=== PATIENT | female | born 1935 | race Caucasian/White ===

== ENCOUNTER 2021-01-16 09:28 | Outpatient (REF) | payer MEDICARE, SELFPAY ==
[2021-01-16 13:20] LABS: Estimated Average Glucose 128 mg/dL; Hemoglobin A1c % 6.1 %
[2021-01-16 13:25] LABS: Alanine Aminotransferase 19 U/L (0-31); Albumin Level 4.2 g/dL (3.5-5.0); Alkaline Phosphatase 86 U/L (39-117); Anion Gap 16 (12-20); Aspartate Amino Transferase 20 U/L (5-31); Bilirubin Total 0.6 mg/dL (0.0-1.0); Blood Urea Nitrogen 11 mg/dL (9-16); Calcium 9.2 mg/dL (8.4-10.2); Carbon Dioxide 21 mmol/L (22-29); Chloride 107 mmol/L (96-108); Cholesterol 257 mg/dL; Estimated Glomerular Filt Rate > 60; Glucose Fasting 155 mg/dL (60-99); HDL Cholesterol 40 mg/dL; LDL Cholesterol Calculated 187 mg/dl; Potassium 3.6 mmol/L (3.3-5.1); Sodium 140 mmol/L (135-145); Total Protein 7.7 g/dL (6.5-8.0); Triglycerides 153 mg/dL
[2021-01-16 16:58] LABS: Creatinine Urine 323.25 mg/dL; Microalbum/Creatinine Ratio Ur 21.3 ug/mg cr
== END 2021-01-16 09:29 | disposition home or self-care (01) ==
LOC: HO.MANLR 09:28
PROVIDERS: PCP Internal Medicine; Visit Provider Internal Medicine
DX: E11.9 Type 2 diabetes mellitus without complications (principal)
CPT/HCPCS: 36415; 80053; 80061; 82043; 83036

== ENCOUNTER 2021-04-16 08:34 | Outpatient (REF) | payer MEDICARE, SELFPAY ==
[2021-04-16 12:03] LABS: Cholesterol 242 mg/dL; HDL Cholesterol 39 mg/dL; LDL Cholesterol Calculated 173 mg/dl; Triglycerides 150 mg/dL
[2021-04-16 12:12] LABS: Estimated Average Glucose 123 mg/dL; Hemoglobin A1c % 5.9 %
== END 2021-04-16 08:35 | disposition home or self-care (01) ==
LOC: HO.MANLDS 08:34
PROVIDERS: PCP Internal Medicine; Visit Provider Internal Medicine
DX: E78.00 Pure hypercholesterolemia, unspecified (principal)
CPT/HCPCS: 36415; 80061; 83036

== ENCOUNTER 2021-07-18 10:28 | Outpatient (REF) | payer MEDICARE, SELFPAY ==
[2021-07-18 13:48] LABS: Alanine Aminotransferase 18 U/L (0-31); Alkaline Phosphatase 88 U/L (39-117); Anion Gap 12 (12-20); Aspartate Amino Transferase 22 U/L (5-31); Bilirubin Total 0.4 mg/dL (0.0-1.0); Blood Urea Nitrogen 11 mg/dL (9-16); Calcium 9.5 mg/dL (8.4-10.2); Carbon Dioxide 25 mmol/L (22-29); Chloride 107 mmol/L (96-108); Cholesterol 163 mg/dL; Estimated Glomerular Filt Rate 58; Glucose Fasting 185 mg/dL (60-99); HDL Cholesterol 41 mg/dL; LDL Cholesterol Calculated 99 mg/dl; Potassium 3.7 mmol/L (3.3-5.1); Sodium 140 mmol/L (135-145); Total Protein 7.4 g/dL (6.5-8.0); Triglycerides 119 mg/dL
[2021-07-18 13:50] LABS: Estimated Average Glucose 123 mg/dL; Hemoglobin A1C 149.1994 umol/L; Hemoglobin A1c % 5.9 %
== END 2021-07-18 10:29 | disposition home or self-care (01) ==
LOC: HO.MANLDS 10:28
PROVIDERS: PCP Internal Medicine; Visit Provider Internal Medicine
DX: E11.9 Type 2 diabetes mellitus without complications (principal)
CPT/HCPCS: 36415; 80053; 80061; 83036

== ENCOUNTER 2021-10-19 11:53 | Outpatient (REF) | payer MEDICARE, SELFPAY ==
[2021-10-19 13:38] LABS: Estimated Average Glucose 126 mg/dL
== END 2021-10-19 11:54 | disposition home or self-care (01) ==
LOC: HO.MANLDS 11:53
PROVIDERS: PCP Internal Medicine; Visit Provider Internal Medicine
DX: E11.9 Type 2 diabetes mellitus without complications (principal)
CPT/HCPCS: 36415; 83036

== ENCOUNTER 2022-01-30 08:49 | Outpatient (REF) | payer MEDICARE, SELFPAY ==
[2022-01-30 11:28] LABS: Estimated Average Glucose 120 mg/dL; Hemoglobin A1C 152.6912 umol/L; Hemoglobin A1c % 5.8 %
[2022-01-30 11:52] LABS: Alanine Aminotransferase 12 U/L (0-31); Albumin Level 3.9 g/dL (3.5-5.0); Alkaline Phosphatase 92 U/L (39-117); Anion Gap 10 (12-20); Aspartate Amino Transferase 15 U/L (5-31); Bilirubin Total 0.6 mg/dL (0.0-1.0); Blood Urea Nitrogen 10 mg/dL (9-16); Calcium 9.6 mg/dL (8.4-10.2); Carbon Dioxide 28 mmol/L (22-29); Chloride 109 mmol/L (96-108); Cholesterol 216 mg/dL; Estimated Glomerular Filt Rate > 60; Glucose Fasting 123 mg/dL (60-99); HDL Cholesterol 42 mg/dL; LDL Cholesterol Calculated 151 mg/dl; Potassium 3.7 mmol/L (3.3-5.1); Sodium 143 mmol/L (135-145); Total Protein 7.2 g/dL (6.5-8.0); Triglycerides 118 mg/dL
[2022-01-30 13:16] LABS: Creatinine Urine 229.71 mg/dL; Microalbum/Creatinine Ratio Ur 5.2 ug/mg cr
== END 2022-01-30 08:50 | disposition home or self-care (01) ==
LOC: HO.MANLDS 08:49
PROVIDERS: PCP Internal Medicine; Visit Provider Internal Medicine
DX: E11.9 Type 2 diabetes mellitus without complications (principal)
CPT/HCPCS: 36415; 80053; 80061; 82043; 83036

== ENCOUNTER 2022-05-31 11:32 | Outpatient (REF) | payer MEDICARE, SELFPAY ==
[2022-05-31 12:44] LABS: Estimated Average Glucose 111 mg/dL; Hemoglobin A1c % 5.5 %
== END 2022-05-31 11:33 | disposition home or self-care (01) ==
LOC: HO.MANLDS 11:32
PROVIDERS: Visit Provider Internal Medicine
DX: E11.9 Type 2 diabetes mellitus without complications (principal)
CPT/HCPCS: 36415; 83036

== ENCOUNTER 2022-10-08 09:26 | Outpatient (REF) | payer MEDICARE, SELFPAY ==
[2022-10-08 11:46] LABS: Alanine Aminotransferase 12 U/L (0-31); Albumin Level 4.1 g/dL (3.5-5.0); Alkaline Phosphatase 92 U/L (39-117); Anion Gap 18 (12-20); Aspartate Amino Transferase 18 U/L (5-31); Bilirubin Total 0.8 mg/dL (0.0-1.0); Blood Urea Nitrogen 10 mg/dL (9-16); Calcium 9.6 mg/dL (8.4-10.2); Carbon Dioxide 21 mmol/L (22-29); Chloride 108 mmol/L (96-108); Cholesterol 157 mg/dL; Estimated Glomerular Filt Rate 51; Glucose Random 161 mg/dL (60-115); HDL Cholesterol 42 mg/dL; LDL Cholesterol Calculated 90 mg/dl; Potassium 3.7 mmol/L (3.3-5.1); Sodium 143 mmol/L (135-145); Total Protein 7.5 g/dL (6.5-8.0); Triglycerides 127 mg/dL
== END 2022-10-08 09:27 | disposition home or self-care (01) ==
LOC: HO.MANLDS 09:26
PROVIDERS: Visit Provider Internal Medicine
DX: E11.9 Type 2 diabetes mellitus without complications (principal)
CPT/HCPCS: 36415; 80053; 80061

== ENCOUNTER 2022-10-14 11:43 | Outpatient (REF) | payer MEDICARE, SELFPAY ==
[2022-10-14 14:42] LABS: Estimated Average Glucose 117 mg/dL; Hemoglobin A1c % 5.7 %
== END 2022-10-14 11:44 | disposition home or self-care (01) ==
LOC: HO.MANLDS 11:43
PROVIDERS: Visit Provider Internal Medicine
DX: E11.9 Type 2 diabetes mellitus without complications (principal)
CPT/HCPCS: 36415; 83036

== ENCOUNTER 2023-01-14 11:18 | Outpatient (REF) | payer MEDICARE, SELFPAY ==
[2023-01-14 14:41] LABS: Estimated Average Glucose 111 mg/dL; Hemoglobin A1C 145.3785 umol/L; Hemoglobin A1c % 5.5 %
[2023-01-14 15:23] LABS: Alanine Aminotransferase 16 U/L (0-31); Alkaline Phosphatase 106 U/L (39-117); Anion Gap 14 (12-20); Aspartate Amino Transferase 26 U/L (5-31); Bilirubin Total 0.7 mg/dL (0.0-1.0); Blood Urea Nitrogen 13 mg/dL (9-16); Calcium 9.5 mg/dL (8.4-10.2); Carbon Dioxide 22 mmol/L (22-29); Chloride 108 mmol/L (96-108); Cholesterol 157 mg/dL; Estimated Glomerular Filt Rate 52; Glucose Random 249 mg/dL (60-115); HDL Cholesterol 42 mg/dL; LDL Cholesterol Calculated 85 mg/dl; Potassium 3.8 mmol/L (3.3-5.1); Sodium 140 mmol/L (135-145); Total Protein 7.3 g/dL (6.5-8.0); Triglycerides 154 mg/dL
== END 2023-01-14 11:19 | disposition home or self-care (01) ==
LOC: HO.MANLDS 11:18
PROVIDERS: Visit Provider Internal Medicine
DX: E11.9 Type 2 diabetes mellitus without complications (principal)
CPT/HCPCS: 36415; 80053; 80061; 83036

== ENCOUNTER 2023-05-12 14:42 | Outpatient (REF) | payer MEDICARE, SELFPAY ==
[2023-05-12 18:13] LABS: Estimated Average Glucose 111 mg/dL; Hemoglobin A1c % 5.5 %
== END 2023-05-12 14:43 | disposition home or self-care (01) ==
LOC: HO.MANLDS 14:42
PROVIDERS: Visit Provider Internal Medicine
DX: E11.9 Type 2 diabetes mellitus without complications (principal)
CPT/HCPCS: 36415; 83036

== ENCOUNTER 2023-11-21 11:18 | Outpatient (REF) | payer MEDICARE, SELFPAY ==
[2023-11-21 13:56] LABS: Estimated Average Glucose 114 mg/dL; Hemoglobin A1c % 5.6 % (<6.0)
== END 2023-11-21 11:19 | disposition home or self-care (01) ==
LOC: HO.MANLDS 11:18
PROVIDERS: Visit Provider Internal Medicine
DX: E11.9 Type 2 diabetes mellitus without complications (principal)
CPT/HCPCS: 36415; 83036

== ENCOUNTER 2024-02-20 13:51 | Outpatient (REF) | payer MEDICARE, OTHER, SELFPAY ==
[2024-02-20 18:16] LABS: Creatinine Urine 81.21 mg/dL
[2024-02-20 18:20] LABS: Alanine Aminotransferase 16 U/L (0-31); Alkaline Phosphatase 96 U/L (39-117); Anion Gap 14 (12-20); Aspartate Amino Transferase 20 U/L (5-31); Bilirubin Total 0.5 mg/dL (0.0-1.0); Blood Urea Nitrogen 13 mg/dL (9-16); Calcium 10.3 mg/dL (8.4-10.2); Carbon Dioxide 24 mmol/L (22-29); Chloride 105 mmol/L (96-108); Estimated Glomerular Filt Rate 56; Glucose Random 124 mg/dL (60-115); Potassium 3.9 mmol/L (3.3-5.1); Sodium 139 mmol/L (135-145); Total Protein 8.1 g/dL (6.5-8.0)
[2024-02-20 18:22] LABS: Estimated Average Glucose 120 mg/dL; Hemoglobin A1c % 5.8 % (<6.0)
== END 2024-02-20 13:52 | disposition home or self-care (01) ==
LOC: HO.MANLDS 13:51
PROVIDERS: Visit Provider Internal Medicine
DX: I10 Essential (primary) hypertension (principal); E11.9 Type 2 diabetes mellitus without complications
CPT/HCPCS: 36415; 80053; 82043; 82570; 83036

== ENCOUNTER 2024-08-23 11:33 | Outpatient (REF) | payer MEDICARE, OTHER, SELFPAY ==
[2024-08-23 13:56] LABS: Estimated Average Glucose 123 mg/dL; Hemoglobin A1c % 5.9 % (<6.0)
[2024-08-23 14:20] LABS: Alanine Aminotransferase 15 U/L (0-31); Albumin Level 3.9 g/dL (3.5-5.0); Alkaline Phosphatase 84 U/L (39-117); Anion Gap 13 (12-20); Aspartate Amino Transferase 17 U/L (5-31); Bilirubin Total 0.5 mg/dL (0.0-1.0); Blood Urea Nitrogen 14 mg/dL (9-16); Calcium 9.9 mg/dL (8.4-10.2); Carbon Dioxide 24 mmol/L (22-29); Chloride 107 mmol/L (96-108); Estimated Glomerular Filt Rate 60; Glucose Random 184 mg/dL (60-115); Potassium 3.6 mmol/L (3.3-5.1); Sodium 140 mmol/L (135-145); Total Protein 7.6 g/dL (6.5-8.0)
== END 2024-08-23 11:34 | disposition home or self-care (01) ==
LOC: HO.MANLDS 11:33
PROVIDERS: Visit Provider Internal Medicine
DX: I10 Essential (primary) hypertension (principal); E11.9 Type 2 diabetes mellitus without complications
CPT/HCPCS: 36415; 80053; 83036

== ENCOUNTER 2025-02-07 13:17 | Outpatient (REF) | payer MEDICARE, OTHER, SELFPAY ==
--- OUTSIDE RECORDS SUMMARY | 2025-02-07 15:00 | XMS_ITS | Continuity of Care Document ---
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 MUST MEET 2 OUT OF 3 ELEMENTS: PROBLEMS, DATA OR RISK ELEMENT 1: PROBLEMS 1 OR MORE CHRONIC ILLNESS W/SEVERE EXACERBATION, PROGRESSION MAY REQUIRE HOSPITAL LEVEL CARE OR 1 ACUTE OR CHRONIC ILLNESS OR INJURY THAT POSES A THREAT TO LIFE OR BODILY FUNCTION ELEMENT 2: DATA: MUST MEET 2 OF 3 CATEGORIES CATEGORY 1 REVIEW OF PRIOR EXTERNAL NOTES REVIEW OF THE RESULTS ORDERING OF EACH TEST ASSESSMENT REQUIRING INDEPENDENT HISTORIAN(S) CATEGORY 2: INDEPENDENT INTERPRETATION OF TESTS BY ANOTHER PROVIDER/SPECIALI ST CATEGORY 3: DISCUSSION OF MGT OR TEST INTERPRETATION W/EXTERNAL PHYSICIAN/SPECIAL IST ELEMENT 3: RISK HIGH RISK OF MORBIDITY FROM ADDITIONAL DIAGNOSTIC TESTING OR TREATMENT PROVIDER MUST THOROUGHLY DOCUMENT EACH ELEMENT THAT IS COVERED has stopped driving and is doing ok except for her eye The patient presented to their appointment today for multiple concerns requiring moderate to high-level decision making and took over 40-45 minutes for an adequate and appropriate history, exam, assessment and treatment plan. This appointment was done with an established patient. Not available 02/07/2025 14:10:17 Plan of Treatment Reminders Order Date Submit Date Provider Last Modified By Organization Details Last Modified Time Details Appointments FOLLOW UP 2024 01:45P M DR KIM Not available Not available Not available FOLLOW UP 2024 01:30P M DR KIM Not available Not available Not available Lab None recorded . Referral None recorded . Procedures None recorded . Surgeries None recorded . Imaging None recorded . Medication Orders None recorded . Patient TargetsNo targets recorded. Patient Instructions Encounter Date Encounter Id Patient Instructions Last Modified By Organization Details Last Modified Time 02/07/2025 [id number] atrial fibrillation: care instructions Not available 02/07/2025 14:09:13 Reason for Referral None Reported. Problems Name Problem SNOMED Code Status Onset Date Resolution Date Notes Provider Name and Address Organization Details Recorded Time Urinary incontine nce 186603107 Active 2017 Not Available [facility] 13:19:52 Trigger finger Active 2017 Not Available [facility] 13:19:52 Degenerat jodie joint disease of hand 19113046 Active 2017 Not Available [facility] 13:19:52 Essential hypertens ion 08116504 Active 2017 Tina wu [facility] 5 09:49:37 Osteoarth ritis 121473580 Active 2017 spine Tina wu [facility] 5 09:49:37 Hyperchol esterolem ia 75257634 Active 2017 Tina wu [facility] 5 09:49:37 Atrial fibrillat ion 12167977 Active 2017 Tinamaria del carmen wu 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 5 09:49:37 Coronary arteriosc lerosis 88816903 Active 2017 2 stents 2005 Micah Kim, DO [address] [place], [address], [facility] 2 11:27:41 Venous varices 249821901 Active 2017 Tina wu [facility] 5 09:49:37 Edema of lower extremity 163138317 Active 2017 Tina wu [facility] 5 09:49:37 Benign paroxysma l positiona l vertigo 717078094 Active 2017 Tina wu [facility] 5 09:49:37 Trochante lincoln bursitis of left hip 03211873384 9103 [facility] 09:49:37 Bilateral degenerat ion of macula 90702386753 134895 Active 2017 [facility] 5 09:49:37 Superfici al thromboph lebitis 8398889 Active 2021 Tina wu 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 Procedures Surgical History Date Name Laterality Status Provider Name and Address Organization Details Recorded Time 020 I&D completed Micah Kim DO [address] [place] [address], [phone], [facility] 05/16/2020 15:09:01 018 Corticosteroid Injection completed Micah Kim DO [address] [place] [address], [phone], [facility] 09/21/2018 14:24:58 Imaging Results None recorded. Procedure Notes None recorded. Medical Equipment None Reported. Allergies Allergen ID Allergen Name Allergen Category Reaction Reaction Severity Criticality Documentation Date Start Date Code Code System Note Provider Name and Address Organization Details Recorded Time 3735 Product containin g 3-hydroxy -3-methyl glutaryl- coenzyme A reductase inhibitor (product) medicatio n myalgias (muscle pain) Not available Not available 01/21/2020 93135 009 SNOMED Micah Kim, DO [address] [place], [address], [facility] 0 10:36:39 393 glipizide medicatio n Not available Not available Not available 02/04/2018 4821 RxNorm [facility] 8 11:32:08 394 Avandia medicatio n Not available Not available Not available 02/04/2018 85257 5 RxNorm Shruthi Chavez [facility] 8 11:32:15 396 bee pollen environme nt,medica tion Not available Not available Not available 02/04/2018 63887 7 [facility] 8 11:32:32 8631 metoprolo l Not available myalgias (muscle pain) severe high 11/26/2024 6918 RxNorm Micah Kim, DO [address] [place], [address], [facility] 4 14:35:44 Medications Name Sig Start Date Stop Date Status Note LastModified by Organization Details LastModified Time Prescriptio n - Prior Authorizati on Request 02/01 completed Not Available Not Available Not Available furosemide 40 mg tablet TAKE 1 TABLET BY MOUTH ONCE DAILY 05/25 completed Not Available Not Available Not Available oxybutynin chloride ER 10 mg tablet,exte nded release 24 hr Take 1 tablet every day by oral route for 30 days. 05/25 completed Not Available Not Available Not Available diltiazem CD 180 mg capsule,ext ended release 24 hr TAKE 1 CAPSULE BY MOUTH EVERY DAY active Not Available Not Available No t Available lisinopril 20 mg tablet TAKE 1 TABLET BY MOUTH EVERY DAY active Not Available Not Available No t Available metoprolol succinate ER 100 mg tablet,exte nded release 24 hr TAKE 1 TABLET BY MOUTH EVERY DAY FOR 30 DAYS 02/07 completed Not Available Not Available Not Available potassium chloride ER 10 mEq tablet,exte nded release TAKE 1 TABLET BY MOUTH ONCE DAILY 05/25 completed Not Available Not Available Not Available OneTouch Ultra Test strips USE DIRECTED TO TEST BLOOD SUGARS DAILY active Not Available Not Available No t Available metformin 1,000 mg tablet TAKE 1 TABLET BY MOUTH ONCE DAILY 08/25 completed Not Available Not Available Not Available oxycodone 5 mg tablet Use one tablet as needed. 02/01 completed Not Available Not Available Not Available rosuvastati n 5 mg tablet TAKE 1 TABLET BY MOUTH EVERY DAY active Not Available Not Available No t Available rosuvastati n 40 mg tablet TAKE 1 TABLET BY MOUTH ONCE DAILY 05/25 completed Not Available Not Available Not Available metoprolol tartrate 25 mg tablet TAKE 1 TABLET BY MOUTH TWICE A DAY 08/30 completed Not Available Not Available Not Available OneTouch UltraSoft Lancets USE DIRECTED DAILY TO CHECK BLOOD SUGARS active Not Available Not Available No t Available Aspir-81 Take one tablet daily. active Not Available Not Available No t Available Januvia 100 mg tablet TAKE 1 TABLET BY MOUTH ONCE DAILY 04/23 completed Not Available Not Available Not Available diclofenac 1 % topical gel APPY 2 G TO THE AFFECTED AREA TOPICAL ROUTE 4 TIMER PER DAY 2021 active Not Available Not Available Not Avai lable Ozempic 1 mg/dose (2 mg/1.5 mL) subcutaneou s pen injector Inject 1.5 mL every week by subcutane ous route for 30 days. 01/24 completed Not Available Not Available Not Available Ozempic 0.25 mg or 0.5 mg (2 mg/1.5 mL) subcutaneou s pen injector INJECT 0.5MG UNDER THE SKIN ONCE A WEEK 05/23 completed Not Available Not Available Not Available OneTouch Ultra2 Meter USE DIRECTED 06/10 completed Not Available Not Available Not Available Ozempic 0.25 mg or 0.5 mg (2 mg/3 mL) subcutaneou s pen injector INJECT 0.5 MG UNDER THE SKIN ONCE WEEKLY active Not Available Not Available No t Available Vitals Date Recorded Body height Body mass index (BMI) Body weight Heart rate Oxygen saturation Oxygen saturation in Arterial blood by Pulse oximetry Systolic blood pressure Diastolic blood pressure Provider Name and Address Organization Details Last Updated DateTime 5 160.66 cm 32.7 kg/m2 54866.1 8 g 90 /min 95 % 95 % 148 mm[Hg] 88 mm[Hg] Tina Camargo [facility] 5 13:48:02 Social History Question Answer Notes LastModified by Organizat ion Details LastModified Time Tobacco Smoking Status Former Smoker Not Available [facility] 10/03/2020 03:36:24 What Was The Date Of Your Most Recent Tobacco Screening? 02/07/2025 [email or web address] Information not available 02/07/2025 Do You Or Have You Ever Used Any Other Forms Of Tobacco Or Nicotine? No Information not available 06/10/2022 Sex: Unknown Functional Status None recorded. Mental Status None recorded. Family History Nothing Reported. Medical History No medical history recorded. Gynecological HistoryNo gynecological history recorded. Obstetrics History GPAL:G 0 P 0 0 0 0 Immunizations Vaccine Type Date Status Note Provider Nam e and Address Organization Details Recorded Time Influenza, split virus, quadrivalent, preservative 9 completed Not Available [facility] 06/29/2022 23:19:00 Influenza, split virus, quadrivalent, preservative 8 completed Not Available [facility] 12/18/2019 02:46:31 pneumococcal polysaccharide PPV23 0 completed Not Available [facility] 06/29/2022 23:19:00 Influenza, split virus, quadrivalent, preservative 0 completed Not Available [facility] 06/29/2022 23:19:00 COVID-19, mRNA, LNP-S, PF, 30 mcg/0.3 mL dose 1 completed Not Available [facility] 06/29/2022 23:19:00 COVID-19, mRNA, LNP-S, PF, 30 mcg/0.3 mL dose 1 completed Not Available [facility] 06/29/2022 23:19:00 Past Encounters Encounter ID Performer Location Encounter Start Date Encounter Closed Date Diagnosis/Indication Diagnosis SNOMED-CT Code Diagnosis ICD10 Code Diagnosis Note [id number] DO [facility] [address] [address] 02/07/2025 13:30:34 02/07/2025 14:28:42 Depression screening 282705899 Z13.31 doing ok no issues Essential hypertension 30584421 I10 had to stop the metoprolol now on diltiazem 180mg Hypercholesterolemia 136 15563 E78.00 LDL is unknown as lab slip misprinted the rosuvastat in is doing well overall Edema of l ower extremity 701953772 R60.0 stable overall no swelling at all and is doing great now that she is walking and she is encouraged to cont this Type 2 frances betes mellitus without complication 695531599 E11.9 a1c is pending5.8 perfect in sept recent a1c is pending Degenerati on of lumbar intervertebral disc 92867093 M51.360 low back is a prob Coronary arteriosclerosis 54572637 I25.10 here for rechk is asymptomat ic Atrial fibrillation 4943 6004 I48.91 diltiazem working well Health Concerns Section Related Observation LastModified by Organization Detai ls LastModified Time None Recorded Concern Status LastModified by Organization Details LastModified Time None Recorded Payers Encounter Date Sequence Insurance Name Policy Number Policy Bermudez Covered Member ID Bermudez Member ID Guarantor Name 02/07/2025 1 [place]ICARE [place] Tabitha Bolivar [id number] Tabitha Bolivar 02/07/2025 2 [facility] Tabitha Bolivar [id number] Tabitha Bolivar Notes Date Note Type Note Provider Name a nd Address Organization Details Recorded Time 5 text/html priorstates had severe pain in her entire body relates she couldnt move or walk had to stay in her lift chairrelates after several dyas of this she has been able to get up againstates that she has some discomfort down back of neck and shoulders and the pain is pretty much gone now but having residual stiffnessrelates that she had her sx start after going to 100mg metoprolol this was stopped and the diltiazem is now in its place and is tolerated Micah Kim, DO [address], [place], [address], [facility] 02/07/2025 14:13:31 OBGyn Episode No OBEpisode recorded.
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
[2025-02-07 18:00] LABS: Estimated Average Glucose 131 mg/dL; Hemoglobin A1c % 6.2 % (<6.0)
[2025-02-07 18:22] LABS: Alanine Aminotransferase 21 U/L (0-31); Alkaline Phosphatase 92 U/L (39-117); Anion Gap 13 (12-20); Aspartate Amino Transferase 25 U/L (5-31); Bilirubin Total 0.3 mg/dL (0.0-1.0); Blood Urea Nitrogen 20 mg/dL (9-16); Calcium 10.2 mg/dL (8.4-10.2); Carbon Dioxide 21 mmol/L (22-29); Chloride 110 mmol/L (96-108); Estimated Glomerular Filt Rate 51; Glucose Random 133 mg/dL (60-115); Magnesium 1.8 mg/dL (1.6-2.6); Potassium 3.9 mmol/L (3.3-5.1); Sodium 140 mmol/L (135-145); Total Protein 8.5 g/dL (6.5-8.0)
[2025-02-07 18:37] LABS: Erythrocyte Sedimentation Rate 44 MM/HR (0-20)
== END 2025-02-07 13:18 | disposition home or self-care (01) ==
LOC: HO.MANLDS 13:17
PROVIDERS: Visit Provider Internal Medicine
DX: E11.9 Type 2 diabetes mellitus without complications (principal); M79.10 Myalgia, unspecified site
CPT/HCPCS: 36415; 80053; 82550; 83036; 83735; 85652

== ENCOUNTER 2025-05-18 13:42 | Outpatient (REF) | payer MEDICARE, OTHER, SELFPAY ==
[2025-05-19 07:19] LABS: Estimated Average Glucose 137 mg/dL; Hemoglobin A1C 161.5653 umol/L; Hemoglobin A1c % 6.4 % (<6.0)
== END 2025-05-18 13:43 | disposition home or self-care (01) ==
LOC: HO.MANLDS 13:42
PROVIDERS: Visit Provider Internal Medicine
DX: E11.9 Type 2 diabetes mellitus without complications (principal)
CPT/HCPCS: 36415; 83036

== ENCOUNTER 2025-09-05 14:03 | Outpatient (REF) | payer MEDICARE, OTHER, SELFPAY ==
--- OUTSIDE RECORDS SUMMARY | 2025-09-05 16:37 | XMS_ITS | Encounter Summary ---
Author Organization [facility] Address [address] [place] [address] [address] [place] [address] Phone Care Team Providers Care Sales And Training Specialist Name Role Phone Micah Vences DO Primary Care Provider [phone] Micah Vences DO Unavailable Encounter Details Date Type Department Care Team ([facility] st Contact Info) Description 10/26/2018 Ancillary Orders Virtual Department [address] [place] [address] Micah Vences DO [address] [place] [address] [email or web address] Screening for osteoporosis Social History Tobacco Use Types Packs/Day Years Used Date Smoking Tobacco: Never Assessed Comments Unknown Sex and Gender Information Value Date Recorded Sex Assigned at Not on file Legal Sex Female 10:14 PM EDT Gender Identity Not on file Sexual Orientation Not on file documented as of this encounter Plan of Treatment Not on file documented as of this encounter Visit Diagnoses Diagnosis Screening for osteoporosis Special screening for osteoporosis documented in this encounter Additional Health Concerns Infection Onset Date Last Indicated Resolved Time MRSA Comment:Import to add expiration date of 02/16/2022 per Infection Control as part of historical infection status reconciliation 08/17/2010 08/17/2010 02/17/20 22 1:36 AM EDT documented as of this encounter Care Teams Sales And Training Specialist Relationship Specialty Start Date End Date Micah Vences DO [email or web address] PCP - General 09/18/17 Micah Vences DO [address] [place] [address] [email or web address] Insurance Assigned Provider 08/10/2210/01 documented as of this encounter Additional Source Comments The information contained in this document represents components of the legal health record. It is not the complete legal health record.[facility]
--- OUTSIDE RECORDS SUMMARY | 2025-09-05 16:37 | XMS_ITS | Encounter Summary ---
Author Organization [facility] Address [address] [place] [address] [address] [place] [address] Phone Care Team Providers Care Salvage Engineer Name Role Phone Micah Vences DO Primary Care Provider [phone] Micah Vences DO Unavailable Encounter Details Date Type Department Care Team ([facility] st Contact Info) Description 02/01/2019 Ancillary Orders Virtual Department [address] [place] [address] Micah Vences DO [address] [facility] [place] [address] [email or web address] Screening for osteoporosis; Osteopenia, unspecified location Social History Tobacco Use Types Packs/Day Years [...] Screening for osteoporosis Special screening for osteoporosis Osteopenia, unspecified location documented in this encounter Additional Health Concerns Infection Onset Date Last Indicated Resolved Time MRSA Comment:Import to add expiration date of 02/16/2022 per Infection Control as part of historical infection status reconciliation 08/17/2010 08/17/2010 02/17/20 22 1:36 AM EDT documented as of this encounter Care Teams Salvage Engineer Relationship Specialty Start Date End Date Micah Vences DO [email or web address] PCP - General 09/18/17 Micah Vences DO [address] [place] [address] [email or web address] Insurance Assigned Provider 08/10/2210/01 documented as of this encounter Additional Source Comments The information contained in this document represents components of the legal health record. It is not the complete legal health record.[facility]
--- OUTSIDE RECORDS SUMMARY | 2025-09-05 16:37 | XMS_ITS | Clinical Summary ---
Author Organization [facility] Address [address] [place] [id number] Phone Care Team Providers Care Heat Treat Operator Name Role Phone Micah Vences DO Primary Care Provider [phone] Allergies Active Allergy Reactions Criticality Noted Date Comments Rosiglitazone 06/29/2022 Glipizide 06/29/2022 Medications potassium chloride (KLOR-CON) 10 MEQ ER tablet Take 1 tablet by mouth daily. Active rosuvastatin (CRESTOR) 40 MG tablet Take 1 tablet by mouth daily. Active furosemide (LASIX) 40 MG tablet TAKE 1 TABLET (40 MG) BY MOUTH ONCE DAILY Active alendronate (FOSAMAX) 70 MG tablet Take 1 tablet by mouth once a week. Active lancets Misc USE TWICE DAILY Active simvastatin (ZOCOR) 40 MG tablet Take 1 tablet by mouth daily. Active metFORMIN (GLUCOPHAGE) 1000 MG tablet Take 1 tablet by mouth daily. with meals Active metoprolol tartrate (LOPRESSOR) 25 MG tablet TAKE 1 TABLET (25 MG) BY MOUTH TWICE A DAY Active lisinopril (PRINIVIL,ZESTRI L) 20 MG tablet Take 1 tablet by mouth daily. Active aspirin 81 MG EC tablet Take 1 tablet by mouth daily. Active CHOLECALCIFEROL, VITAMIN D3, (VITAMIN D3 ORAL) Orally daily Active blood sugar diagnostic (GLUCOSE BLOOD) Strp strips USE TWICE DAILY Active Active Problems Problem Noted Date Diagnosed Date Atherosclerosis of [place] co ronary artery of [place] heart without angina pectoris 03/16/2018 Overview (03/16/2018): Remote PCI ?details Hypercholesterolemia 03/16/2018 Hypertensive disorder 03/16/2018 Atrial fibrillation 03/16/2018 Social History Tobacco Use Types Packs/Day Years Used Date Smoking Tobacco: Never Assessed Education Answer Date Recorded Are you interested in more education? Not on vickie e 03/28/2023 Are you concerned about learning? Not on file 03/28/2023 No 03/28/2023 No 03/28/2023 Digital Access Answer Date Recorded No 04/28/2023 No 04/28/2023 No 04/28/2023 Reliable internet access at home? Not on file 04/28/2023 Device with a working camera? Not on file Comments Unknown Sex and Gender Information Value Date Recorded Sex Assigned at Not on file Legal Sex Female 10:14 PM EDT Gender Identity Not on file Sexual Orientation Not on file Last Filed Vital Signs Vital Sign Reading Time Taken Comments Blood Pressure 206/94 06/29/2022 5:11 PM EDT Pulse 81 06/29/2022 5:11 PM EDT Temperature 36.7 C (98.1 F) 06/29/2022 1:01 PM EDT Respiratory Rate 20 06/29/2022 5:11 PM EDT Oxygen Saturation 99% 06/29/2022 5:11 PM EDT Inhaled Oxygen Concentration - - Weight 85.3 kg (188 lb) 06/29/2022 1:01 PM EDT Height 162.6 cm (5' 4 ) 06/29/2022 1:01 PM EDT Body Mass Index 32.27 06/29/2022 1:01 PM EDT Plan of Treatment Not on file Medical Devices Not on file Insurance MEDICARE PART A & B [facility] MEDICARE ENHANCE SUPPLEMENT MEDICARE PART A & B [facility] MEDICARE ENHANCE SUPPLEMENT MEDICARE PART A & B [facility] MEDICARE ENHANCE SUPPLEMENT MEDICARE PART A & B [facility] MEDICARE ENHANCE SUPPLEMENT MEDICARE PART A & B [facility] MEDICARE ENHANCE SUPPLEMENT MEDICARE PART A & B [facility] MEDICARE ENHANCE SUPPLEMENT MEDICARE PART A & B Member Subscriber Plan / Payer ( fective 2001-Present) Name:Tabitha Bolivar Member ID:[id number] Relation to Subscriber:Self Name:Tabitha Bolivar Subscriber ID:[id number] Payer ID:[id number] Group ID:Not on file Type:Medicare Address: [employer] [facility] [address] [address] [facility] MEDICARE ENHANCE SUPPLEMENT MEDICARE PART A & B [facility] MEDICARE ENHANCE SUPPLEMENT MEDICARE PART A & B [facility] MEDICARE ENHANCE SUPPLEMENT Care Teams Heat Treat Operator Relationship Specialty Start Date End Date Micah Vences DO PCP - General 09/18/17 Additional Source Comments The information contained in this document represents components of the legal health record. It is not the complete legal health record.[facility]
[2025-09-05 18:18] LABS: MANUAL DIFF FLAG NO
[2025-09-05 18:21] LABS: Hematocrit 39.9 % (37.0-47.0); Hemoglobin 12.9 g/dl (12.0-16.0); Imm Gran Abs Auto 0.02 X10*3/uL (0.00-0.03); Imm Gran Pct Auto 0.2 % (0.0-0.4); Lymphocytes Absolute Auto 2.7 X10*3/uL (1.2-4.9); Mean Corpuscular HGB Conc 32.3 g/dl (31.0-35.0); Mean Corpuscular Hemoglobin 28.5 pg (27.0-33.0); Mean Corpuscular Volume 88.1 fL (80.0-98.0); NRBC Abs Auto 0.000 X10*3/uL (0.0-0.012); NRBC Pct Auto 0.0 /100WBC (0.0-0.2); Platelet Count 223 X10*3/uL (160-400); Red Blood Count 4.53 X10*6/uL (4.20-5.50); White Blood Count 9.3 X10*3/uL (4.8-10.8)
[2025-09-05 18:37] LABS: Alanine Aminotransferase 14 U/L (0-31); Albumin Level 4.0 g/dL (3.5-5.0); Alkaline Phosphatase 97 U/L (39-117); Anion Gap 10 (12-20); Aspartate Amino Transferase 22 U/L (5-31); Blood Urea Nitrogen 19 mg/dL (9-16); Calcium 9.6 mg/dL (8.4-10.2); Carbon Dioxide 25 mmol/L (22-29); Chloride 108 mmol/L (96-108); Cholesterol 154 mg/dL (<200); Estimated Glomerular Filt Rate 53; HDL Cholesterol 35 mg/dL (>40); Potassium 3.7 mmol/L (3.3-5.1); Sodium 139 mmol/L (135-145); Total Protein 7.6 g/dL (6.5-8.0); Triglycerides 147 mg/dL (<150)
[2025-09-06 07:10] LABS: Hemoglobin A1C 152.6633 umol/L; Total Hemoglobin (HGBA1C) 3325.3053 umol/L
== END 2025-09-05 14:04 | disposition home or self-care (01) ==
LOC: HO.MANLDS 14:03
PROVIDERS: Visit Provider Internal Medicine
DX: E11.9 Type 2 diabetes mellitus without complications (principal)
CPT/HCPCS: 36415; 80053; 80061; 83036; 85025